=== PATIENT | male | born 1950 | race African-American/Black ===

== ENCOUNTER → 2017-01-24 | Outpatient (CLI) | payer MEDICARE, OTHER ==
[~2017-01-24] MED LIST: AMLO10TA80 PO; ASPI-1035 PO; ATOR80TA76 PO; CARV25TA47 PO; CLOP75TA2 PO; DOCU-138 PO; FURO80TA87 PO; LISI40TA4 PO; NITR0.4T3 SL
== END | disposition home or self-care (01) ==
LOC: US 08:39
PROVIDERS: ATTEND Internal Medicine Gastroenterology
DX: B19.10 Unspecified viral hepatitis B without hepatic coma (principal); K76.0 Fatty (change of) liver, not elsewhere classified
CPT/HCPCS: 76700

== ENCOUNTER 2018-02-17 19:05 | Emergency (ER) | payer MEDICARE, MEDICAID, OTHER ==
[~2018-02-17] VITALS: Ht 167.6 cm; Wt 129.0 kg
[~2018-02-17 19:05] MED LIST changes: -ASPI-1035 PO; +ASPI-1159 PO; +ATOR-2 PO; -ATOR80TA76 PO; +CLOP75TA16 PO; -CLOP75TA2 PO; +ENTRESTO PO; -NITR0.4T3 SL; +NITR0.4T49 SL; +POTA10CA42 PO
[2018-02-17] MEDS ORDERED: ALBUTEROL (0.083%) 2.5MG/3ML NEB HHN STA (23:07)
[2018-02-17] MEDS ORDERED: PREDNISONE 20MG TABLET PO STA (23:07)
[2018-02-17] MEDS ORDERED: IPRATROPIUM BROMIDE (0.02%) 0.5MG/2.5ML NEB HHN STA (23:07)
[2018-02-18 02:45] VITALS: BP 115/81
== END 2018-02-18 03:00 | disposition home or self-care (01) ==
LOC: ER 21:51
DX: R05 Cough (principal); R06.2 Wheezing; I10 Essential (primary) hypertension; I25.10 Atherosclerotic heart disease of native coronary artery without angina pectoris; Z79.82 Long term (current) use of aspirin; Z95.810 Presence of automatic (implantable) cardiac defibrillator; Z85.9 Personal history of malignant neoplasm, unspecified
CPT/HCPCS: 71045; 94640; 99283; J7512; J7611

== ENCOUNTER 2019-11-20 20:21 | Emergency (ER) | payer OTHER ==
[~2019-11-20] VITALS: Ht 177.8 cm; Wt 120.0 kg
[~2019-11-20 20:21] MED LIST changes: -ASPI-1159 PO; +ASPI-1497 PO; -CLOP75TA16 PO; +CLOP75TA4 PO
[2019-11-20] MEDS ORDERED: MORPHINE SULFATE 4 MG/ML CPJ (NOT FOR IM USE) IV STA (21:30)
[2019-11-20] MEDS ORDERED: ONDANSETRON HCL 4MG/2ML INJ IV STA (21:30)
[2019-11-20] MEDS ORDERED: HYDRALAZINE 20MG/ML VIAL IV ONE (22:15)
[2019-11-20] MEDS ORDERED: DEXAMETHASONE 10 MG/ML VIAL IV ONE (22:15)
[2019-11-20] MEDS ORDERED: LEVETIRACETAM 500MG PREMIX 100 ML IV ONE (22:15)
[2019-11-20] MEDS ORDERED: PHYTONADIONE 10 MG in DEXTROSE 5% WATER 50 ML IV ONE (22:30)
[2019-11-20 23:06] LABS: BASOPHILS % 0.9 % (0.0-2.0); CHLORIDE 108 mEq/L (98-107); EOSINOPHILS % 1.2 % (0.0-5.0); HEMATOCRIT. 42.4 % (42.0-52.0); HEMOGLOBIN. 14.2 g/dL (14.0-18.0); MEAN CORPUSCULAR HEMOGLOBIN 32.9 pg (28.0-32.0); MEAN CORPUSCULAR VOLUME 98.1 fL (80.0-94.0); MEAN PLATELET VOLUME 10.1 fl (7.4-10.4); MONOCYTES % 12.8 % (2.0-8.0); NEUTROPHILS % 72.1 % (40.0-76.0); PLATELET 168 x1000/uL (130-400); RED BLOOD CELL COUNT 4.33 mill/uL (4.7-6.1); RED CELL DISTRIBUTION WIDTH 14.9 % (11.6-14.6)
[2019-11-20 23:11] LABS: ETHANOL BLOOD < 10 mg/dL
[2019-11-20 23:14] LABS: INR 2.9; PARTIAL THROMBOPLASTIN TIME 43.7 sec (23.4-31.0); PROTHROMBIN TIME 30.5 sec (9.6-11.0)
[2019-11-21] VITALS: BP 136/88
== END 2019-11-20 22:45 | disposition short-term general hospital (02) ==
LOC: ER 20:21 → CANBEDREQ 11-21 01:20
DX: S09.8XXA Other specified injuries of head, initial encounter (principal); W22.8XXA Striking against or struck by other objects, initial encounter; Y93.89 Activity, other specified; Y92.89 Other specified places as the place of occurrence of the external cause; Y99.8 Other external cause status; I10 Essential (primary) hypertension; Z95.0 Presence of cardiac pacemaker; Z79.82 Long term (current) use of aspirin; Z79.899 Other long term (current) drug therapy
CPT/HCPCS: 36415; 70450; 71045; 80053; 80320; 83880; 84484; 85025; 85610; 85730; 93005; 96365; 96367; 96375; 99291; J0360; J1100; J1953; J2270; J2405; J3430; J7060; G0480

== ENCOUNTER 2020-11-15 20:45 | Inpatient (IN) | payer MEDICARE, MEDICAID ==
[~2020-11-15] VITALS: Ht 182.9 cm; Wt 105.0 kg
[~2020-11-15 20:45] MED LIST changes: +CLOP-31 PO; -CLOP75TA4 PO; +LISI40TA13 PO; -LISI40TA4 PO
[2020-11-15] MEDS ORDERED: LEVETIRACETAM 500MG PREMIX 100 ML IV ONE (21:30)
[2020-11-15 21:32] LABS: EOSINOPHILS % 1.8 % (0.0-5.0); HEMATOCRIT. 58.7 % (42.0-52.0); HEMOGLOBIN. 18.1 g/dL (14.0-18.0); LYMPHOCYTES % 31.8 % (20.0-50.0); MEAN CORPUSCULAR VOLUME 104.2 fL (80.0-94.0); MEAN PLATELET VOLUME 10.6 fl (7.4-10.4); MONOCYTES % 10.3 % (2.0-8.0); NEUTROPHILS % 55.1 % (40.0-76.0); PLATELET 158 x1000/uL (130-400); RED BLOOD CELL COUNT 5.63 mill/uL (4.7-6.1); RED CELL DISTRIBUTION WIDTH 15.6 % (11.6-14.6)
[2020-11-15 21:38] LABS: CHLORIDE 103 mEq/L (98-107)
[2020-11-15 21:43] LABS: ETHANOL BLOOD < 10 mg/dL
[2020-11-15 21:47] LABS: CREATINE KINASE 105 IU/L (39-308)
[2020-11-15] MEDS ORDERED: MIDAZOLAM HCL 100 MG in DEXT 5% WATER 80 ML IV SCH (22:15)
[2020-11-15] MEDS ORDERED: MIDAZOLAM HCL 100 MG in DEXT 5% WATER 80 ML IV ONE (22:15)
[2020-11-15 22:21] LABS: CLARITY URINE CLEAR (CLEAR); COLOR URINE YELLOW (YELLOW); KETONES URINE TRACE (NEGATIVE); LEUKOCYTE ESTERASE URINE NEGATIVE (NEGATIVE); NITRITE URINE NEGATIVE (NEGATIVE); OCCULT BLOOD URINE TRACE (NEGATIVE); PROTEIN URINE 3+ (NEGATIVE); SPECIFIC GRAVITY URINE 1.018 (1.005-1.030)
[2020-11-15 22:39] LABS: *AMPHETAMINES SCREEN URINE NEGATIVE (NEGATIVE); *BARBITURATES SCREEN URINE NEGATIVE (NEGATIVE); *BENZODIAZEPINES SCREEN URINE NEGATIVE (NEGATIVE); *COCAINE SCREEN URINE NEGATIVE (NEGATIVE); METHADONE URINE SCREEN NEGATIVE (NEGATIVE); OPIATES URINE SCREEN NEGATIVE (NEGATIVE); PHENCYCLIDINE URINE SCREEN NEGATIVE (NEGATIVE)
[2020-11-15 22:40] LABS: CANNABINOID URINE SCREEN NEGATIVE (NEGATIVE)
[2020-11-15] MEDS ORDERED: LACTULOSE 300 ML in WATER FOR IRRIGATION,STERILE 700 ML IR ONE (23:00)
[2020-11-15] MEDS ORDERED: FUROSEMIDE 40MG/4ML VIAL IVP ONE (23:00)
[2020-11-15 23:34] LABS: BG BASE EXCESS -5.9 mmol/L (-2.0-2.0); BG CARBOXYHEMOGLOBIN 0.7 % (0.5-1.5); BG DEOXYHEMOGLOBIN 0.5 % (0.0-5.0); BG FRACTION INSPIRED OXYGEN 100; BG HCO3 ACT 20.9 mmol/L (22.0-26.0); BG METHEMOGLOBIN 0.6 % (0.0-1.5); BG OXYGEN SATURATION 99.5 % (92.0-98.5); BG OXYHEMOGLOBIN 98.2 % (94.0-97.0); BG PCO2 45.2 mmHg (35.0-45.0); BG PH 7.282 (7.350-7.450); BG SAMPLE SITE RIGHT BRACHIAL; BG TOTAL HEMOGLOBIN 17.6 g/dL (12.0-18.0); BG VENT MODE VENT - AC
[2020-11-16] MEDS ORDERED: CALCIUM CHLORIDE 1GM/10ML SYR IV ONE (00:05)
[2020-11-16] MEDS ORDERED: ETOMIDATE 2MG/ML 10ML VIAL IV ONE (00:05)
[2020-11-16] MEDS ORDERED: ATROPINE SULFATE 1MG/10ML SYR ONE (00:05)
[2020-11-16] MEDS ORDERED: SODIUM BICARBONATE 8.4% 1 MEQ/ML 50ML SYR IV ONE (00:05)
[2020-11-16] MEDS ORDERED: SUCCINYLCHOLINE CHLORIDE 200MG/10ML IV ONE (00:05)
[2020-11-16] MEDS ORDERED: MAGNESIUM SULFATE 4G IN WATER 100ML PREMIX IV ONE (00:05)
[2020-11-16] MEDS ORDERED: EPINEPHRINE 0.1MG/ML (1:10,000) 10ML SYR ONE (00:05)
[2020-11-16] MEDS ORDERED: AMIODARONE HCL 50MG/ML 3ML VIAL IV ONE (00:05)
[2020-11-16] MEDS ORDERED: CHOL400D7 PO (03:23)
[2020-11-16] MEDS ORDERED: LINA145C MT (03:27)
[2020-11-16] MEDS ORDERED: BRIM5DRO6 OP (03:27)
[2020-11-16] MEDS ORDERED: SPIR25TA6 MT (03:27)
[2020-11-16] MEDS ORDERED: LORA10TA7 MT (03:27)
[2020-11-16] MEDS ORDERED: DABI150C MT (03:27)
[2020-11-16] MEDS ORDERED: NA PHOS,M-B/NA PHOS,DI-BA ENEMA 118ML PR PRN (07:30)
[2020-11-16] MEDS ORDERED: GUAIFENESIN 200MG/10ML SUGAR FREE UDC PO PRN (07:30)
[2020-11-16] MEDS ORDERED: CLONIDINE 0.1MG TABLET PO PRN (07:30)
[2020-11-16] MEDS ORDERED: HYDROCODONE/ACETAMINOPHEN 5/325MG TABLET PO PRN (07:30)
[2020-11-16] MEDS ORDERED: LORAZEPAM 2MG/ML CPJ IV PRN (07:30)
[2020-11-16] MEDS: DEXT 5%/0.45% NACL 1000ML 1,000 ML IV SCH (07:30)
[2020-11-16] MEDS ORDERED: DIPHENHYDRAMINE 50MG/ML VIAL IV PRN (07:30)
[2020-11-16] MEDS ORDERED: DEXTROSE 50% WATER 50ML SYRINGE IV PRN (07:30)
[2020-11-16] MEDS ORDERED: IPRATROPIUM/ALBUTEROL 0.5-3(2.5)MG/3ML NEB NEB PRN (07:30)
[2020-11-16] MEDS ORDERED: ONDANSETRON HCL 4MG/2ML INJ IV PRN (07:30)
[2020-11-16] MEDS ORDERED: HYDRALAZINE 20MG/ML VIAL IV PRN (07:30)
[2020-11-16] MEDS ORDERED: MAGNESIUM/ALUMINUM HYDROXIDE/SIMETHICONE 30ML UDC PO PRN (07:30)
[2020-11-16] MEDS ORDERED: ACETAMINOPHEN 325MG TABLET PO PRN (07:30)
[2020-11-16] MEDS ORDERED: DOCUSATE SODIUM 100MG CAPSULE PO PRN (07:30)
[2020-11-16] MEDS: INSULIN LISPRO 100 UNITS/ML SUBCUT SCH ×4 (08:20→21:00)
[2020-11-16] MEDS: ENOXAPARIN 30MG/0.3ML SYR SUBCUT SCH ×2 (09:17→21:38)
[2020-11-16] MEDS: PIPERACILLIN/TAZ 3.375G PREMIX 50 ML IV SCH ×2 (09:44→17:30)
[2020-11-16] MEDS: LEVETIRACETAM 500MG PREMIX 100 ML IV SCH ×2 (09:51→21:21)
[2020-11-16 09:54] LABS: BG BASE EXCESS 0.2 mmol/L (-2.0-2.0); BG CARBOXYHEMOGLOBIN 0.3 % (0.5-1.5); BG DEOXYHEMOGLOBIN 0.4 % (0.0-5.0); BG FRACTION INSPIRED OXYGEN 100; BG METHEMOGLOBIN 0.3 % (0.0-1.5); BG OXYGEN SATURATION 99.6 % (92.0-98.5); BG PCO2 45.5 mmHg (35.0-45.0); BG PH 7.374 (7.350-7.450); BG PO2 328.5 mmHg (75.0-100.0); BG SAMPLE SITE RIGHT RADIAL; BG TOTAL HEMOGLOBIN 18.1 g/dL (12.0-18.0); BG VENT MODE VENT - AC
[2020-11-16] MEDS: ASPIRIN 81MG TABLET PO SCH (10:30)
[2020-11-16] MEDS: CLOPIDOGREL 75MG TABLET PO SCH (10:30)
[2020-11-16] MEDS: LISINOPRIL 2.5MG TABLET PO SCH (10:30)
[2020-11-16] MEDS: PANTOPRAZOLE SODIUM 40 MG/VIAL IV SCH (11:12)
[2020-11-16] MEDS: FUROSEMIDE 20MG/2ML VIAL IVP SCH (11:12)
[2020-11-16] MEDS ORDERED: LACTULOSE 20G/30ML UDC PO SCH (12:00)
[2020-11-16] MEDS: BLOOD SUGAR DIAGNOSTIC STRIP TEST SCH ×2 (12:11→18:18)
[2020-11-16] MEDS: SODIUM CHLORIDE 0.9% INJ 3ML FLUSH IVF SCH ×2 (12:25→22:00)
[2020-11-16] MEDS ORDERED: MIDAZOLAM HCL 100 MG in SODIUM CHLORIDE 0.9% 80 ML IV PRN (13:00)
[2020-11-16] MEDS ORDERED: FENTANYL CITRATE/PF 2,500 MCG in SODIUM CHLORIDE 0.9% 200 ML IV PRN (13:00)
[2020-11-16] MEDS ORDERED: IPRATROPIUM/ALBUTEROL 0.5-3(2.5)MG/3ML NEB HHN PRN (13:30)
[2020-11-16] MEDS: IPRATROPIUM/ALBUTEROL 0.5-3(2.5)MG/3ML NEB HHN SCH ×2 (15:28→20:25)
[2020-11-16 16:34] LABS: CREATINE KINASE MB FRACTION 1.6 ng/mL (0.5-3.6)
[2020-11-16] MEDS: ATORVASTATIN CALCIUM 20MG TABLET PO SCH (21:35)
[2020-11-16] MEDS: CARVEDILOL 3.125 MG TABLET PO SCH (21:35)
[2020-11-16 23:58] LABS: CREATINE KINASE MB FRACTION 1.1 ng/mL (0.5-3.6)
[2020-11-17] MEDS: PIPERACILLIN/TAZ 3.375G PREMIX 50 ML IV SCH ×3 (02:03→17:30)
[2020-11-17] MEDS: IPRATROPIUM/ALBUTEROL 0.5-3(2.5)MG/3ML NEB HHN SCH ×7 (02:39→23:32)
[2020-11-17] MEDS: DEXT 5%/0.45% NACL 1000ML 1,000 ML IV SCH ×2 (02:39→16:50)
[2020-11-17 04:30] LABS: CHLORIDE 105 mEq/L (98-107)
[2020-11-17 04:31] LABS: BASOPHILS % 0.7 % (0.0-2.0); EOSINOPHILS % 0.5 % (0.0-5.0); HEMATOCRIT. 50.6 % (42.0-52.0); HEMOGLOBIN. 16.6 g/dL (14.0-18.0); LYMPHOCYTES % 9.4 % (20.0-50.0); MEAN CORPUSCULAR HEMOGLOBIN 32.9 pg (28.0-32.0); MEAN CORPUSCULAR VOLUME 100.1 fL (80.0-94.0); MEAN PLATELET VOLUME 10.4 fl (7.4-10.4); MONOCYTES % 10.5 % (2.0-8.0); NEUTROPHILS % 78.9 % (40.0-76.0); PLATELET 132 x1000/uL (130-400); RED BLOOD CELL COUNT 5.06 mill/uL (4.7-6.1); RED CELL DISTRIBUTION WIDTH 15.2 % (11.6-14.6)
[2020-11-17 04:36] LABS: LDL CHOLESTEROL 92 mg/dL (5-100)
[2020-11-17 04:37] LABS: HDL CHOLESTEROL 42 mg/dL (40-59)
[2020-11-17 04:38] LABS: T4 FREE 0.93 ng/dL (0.76-1.46)
[2020-11-17] MEDS: BLOOD SUGAR DIAGNOSTIC STRIP TEST SCH ×3 (06:13→12:44)
[2020-11-17] MEDS: SODIUM CHLORIDE 0.9% INJ 3ML FLUSH IVF SCH ×3 (06:13→22:00)
[2020-11-17] MEDS: INSULIN LISPRO 100 UNITS/ML SUBCUT SCH ×4 (06:30→21:00)
[2020-11-17 08:11] LABS: BG BASE EXCESS -1.3 mmol/L (-2.0-2.0); BG CARBOXYHEMOGLOBIN 0.2 % (0.5-1.5); BG DEOXYHEMOGLOBIN 0.5 % (0.0-5.0); BG HCO3 ACT 24.1 mmol/L (22.0-26.0); BG METHEMOGLOBIN 0.3 % (0.0-1.5); BG OXYGEN SATURATION 99.5 % (92.0-98.5); BG PCO2 42.8 mmHg (35.0-45.0); BG PH 7.369 (7.350-7.450); BG PO2 245.1 mmHg (75.0-100.0); BG SAMPLE SITE RIGHT BRACHIAL; BG TOTAL HEMOGLOBIN 17.8 g/dL (12.0-18.0); BG VENT MODE VENT - AC
[2020-11-17] MEDS ORDERED: DOCUSATE SODIUM SUGAR FREE 100MG/10ML UDC PO PRN (09:49)
[2020-11-17] MEDS ORDERED: ACETAMINOPHEN 650MG/20.3ML UDC PO PRN (10:00)
[2020-11-17] MEDS: LEVETIRACETAM 500MG PREMIX 100 ML IV SCH ×2 (10:40→23:00)
[2020-11-17] MEDS: ENOXAPARIN 30MG/0.3ML SYR SUBCUT SCH (10:45)
[2020-11-17] MEDS: CLOPIDOGREL 75MG TABLET PO SCH (10:50)
[2020-11-17] MEDS: ASPIRIN 81MG TABLET PO SCH (10:50)
[2020-11-17] MEDS: FUROSEMIDE 20MG/2ML VIAL IVP SCH (10:55)
[2020-11-17] MEDS: PANTOPRAZOLE SODIUM 40 MG/VIAL IV SCH (10:55)
[2020-11-17] MEDS: LISINOPRIL 2.5MG TABLET PO SCH (12:00)
[2020-11-17] MEDS: CARVEDILOL 3.125 MG TABLET PO SCH ×2 (12:00→21:00)
[2020-11-17] MEDS ORDERED: MIDAZOLAM HCL 100 MG in SODIUM CHLORIDE 0.9% 80 ML IV PRN (18:15)
[2020-11-18] MEDS: IPRATROPIUM/ALBUTEROL 0.5-3(2.5)MG/3ML NEB HHN SCH ×2 (03:54→08:00)
[2020-11-18] MEDS: BLOOD SUGAR DIAGNOSTIC STRIP TEST SCH (04:59)
[2020-11-18 05:37] LABS: HEMATOCRIT. 48.3 % (42.0-52.0); HEMOGLOBIN. 15.8 g/dL (14.0-18.0); MEAN CORPUSCULAR HEMOGLOBIN 32.3 pg (28.0-32.0); MEAN CORPUSCULAR VOLUME 98.8 fL (80.0-94.0); MEAN PLATELET VOLUME 10.5 fl (7.4-10.4); PLATELET 115 x1000/uL (130-400); RED BLOOD CELL COUNT 4.88 mill/uL (4.7-6.1); RED CELL DISTRIBUTION WIDTH 14.6 % (11.6-14.6)
[2020-11-18 06:12] LABS: HEPATITIS B SURFACE ANTIGEN NEGATIVE
[2020-11-18] MEDS: ATORVASTATIN CALCIUM 20MG TABLET PO SCH (06:19)
[2020-11-18] MEDS: SODIUM CHLORIDE 0.9% INJ 3ML FLUSH IVF SCH (06:21)
[2020-11-18] MEDS: PIPERACILLIN/TAZ 3.375G PREMIX 50 ML IV SCH (06:31)
[2020-11-18 06:42] LABS: HEPATITIS A AB IGM NEGATIVE (NEGATIVE)
[2020-11-18 07:27] LABS: BG BASE EXCESS -0.4 mmol/L (-2.0-2.0); BG CARBOXYHEMOGLOBIN 0.6 % (0.5-1.5); BG DEOXYHEMOGLOBIN 4.3 % (0.0-5.0); BG FRACTION INSPIRED OXYGEN 80; BG HCO3 ACT 23.7 mmol/L (22.0-26.0); BG METHEMOGLOBIN 0.1 % (0.0-1.5); BG OXYGEN SATURATION 95.7 % (92.0-98.5); BG PCO2 37.8 mmHg (35.0-45.0); BG PH 7.416 (7.350-7.450); BG PO2 81.4 mmHg (75.0-100.0); BG SAMPLE SITE RIGHT RADIAL; BG TOTAL HEMOGLOBIN 16.4 g/dL (12.0-18.0); BG VENT MODE VENT - AC
[2020-11-18] MEDS ORDERED: ENOXAPARIN 40MG/0.4ML SYR SUBCUT SCH (09:00)
[2020-11-18] MEDS: LEVETIRACETAM 500MG PREMIX 100 ML IV SCH (09:17)
[2020-11-18] MEDS: CLOPIDOGREL 75MG TABLET PO SCH (09:17)
[2020-11-18] MEDS: PANTOPRAZOLE SODIUM 40 MG/VIAL IV SCH (09:17)
[2020-11-18] MEDS: ASPIRIN 81MG TABLET PO SCH (09:17)
[2020-11-18] MEDS: DEXT 5%/0.45% NACL 1000ML 1,000 ML IV SCH (09:17)
[2020-11-18] MEDS ORDERED: FENTANYL CITRATE/PF 2,500 MCG in SODIUM CHLORIDE 0.9% 200 ML IV PRN (09:34)
[2020-11-18] MEDS: CARVEDILOL 3.125 MG TABLET PO SCH (09:39)
[2020-11-18] MEDS: LISINOPRIL 2.5MG TABLET PO SCH (09:39)
[2020-11-18] MEDS: INSULIN LISPRO 100 UNITS/ML SUBCUT SCH ×2 (11:35→11:36)
[2020-11-18 12:16] VITALS: BP 74/51
[2020-11-18] MEDS ORDERED: PHENYLEPHRINE 50 MG in DEXT 5% WATER 245 ML IV PRN (12:30)
[2020-11-18] MEDS ORDERED: METOPROLOL TARTRATE 5MG/5ML VIAL IV SCH (12:45)
[2020-11-18] MEDS ORDERED: HEPARIN 5000 UNITS/ML VIAL IV NR (12:45)
[2020-11-18] MEDS ORDERED: HEPARIN 25,000 UNITS PREMIX 250 ML IV SCH (13:00)
[2020-11-18] MEDS ORDERED: AMIODARONE HCL 900 MG in DEXT 5% WATER 482 ML IV STA (13:13)
[2020-11-18] MEDS ORDERED: AMIODARONE HCL 900 MG in DEXT 5% WATER 482 ML IV SCH (13:30)
[2020-11-18] MEDS ORDERED: HEPARIN 25,000 UNITS PREMIX 250 ML IV PRN (13:30)
[2020-11-18] MEDS ORDERED: HEPARIN 5000 UNITS/ML VIAL IV PRN ×2 (13:30)
[2020-11-18] MEDS ORDERED: EPINEPHRINE 5 MG in SODIUM CHLORIDE 0.9% 245 ML IV STA (13:34)
[2020-11-18] MEDS ORDERED: EPINEPHRINE 5 MG in SODIUM CHLORIDE 0.9% 245 ML IV PRN (13:45)
[2020-11-18 14:29] LABS: PLATELET ESTIMATE SLIGHTLY DECREASED
[2020-11-18] MEDS ORDERED: LACTULOSE 20G/30ML UDC PO SCH (17:00)
[2020-11-18] MEDS ORDERED: CARVEDILOL 6.25 MG TABLET PO SCH (21:00)
== END 2020-11-18 15:50 | disposition expired | DRG 871 ==
LOC: ER 20:45 → MICUSO 11-16 00:05
PROVIDERS: ADMIT Internal Medicine; ATTEND Internal Medicine
PROC: 06HY33Z Insertion of Infusion Device into Lower Vein, Percutaneous Approach (ICD-10-PCS; principal; 2020-11-16)
PROC: B54BZZA Ultrasonography of Right Lower Extremity Veins, Guidance (ICD-10-PCS; 2020-11-16)
PROC: 5A12012 Performance of Cardiac Output, Single, Manual (ICD-10-PCS; 2020-11-16)
PROC: 0BH18EZ Insertion of Endotracheal Airway into Trachea, Via Natural or Artificial Opening Endoscopic (ICD-10-PCS; 2020-11-16)
PROC: 5A1945Z Respiratory Ventilation, 24-96 Consecutive Hours (ICD-10-PCS; 2020-11-16)
DX: A41.9 Sepsis, unspecified organism (principal); J96.00 Acute respiratory failure, unspecified whether with hypoxia or hypercapnia; J18.9 Pneumonia, unspecified organism; I21.4 Non-ST elevation (NSTEMI) myocardial infarction; N17.0 Acute kidney failure with tubular necrosis; D68.9 Coagulation defect, unspecified; E46 Unspecified protein-calorie malnutrition; E87.4 Mixed disorder of acid-base balance; I13.0 Hypertensive heart and chronic kidney disease with heart failure and stage 1 through stage 4 chronic kidney disease, or unspecified chronic kidney disease; I50.22 Chronic systolic (congestive) heart failure; E72.29 Other disorders of urea cycle metabolism; E78.5 Hyperlipidemia, unspecified; I25.10 Atherosclerotic heart disease of native coronary artery without angina pectoris; Z20.822 Contact with and (suspected) exposure to COVID-19; G40.901 Epilepsy, unspecified, not intractable, with status epilepticus; B19.20 Unspecified viral hepatitis C without hepatic coma; I25.5 Ischemic cardiomyopathy; Z66 Do not resuscitate; Z51.5 Encounter for palliative care; K74.60 Unspecified cirrhosis of liver; N18.9 Chronic kidney disease, unspecified; R00.8 Other abnormalities of heart beat; F17.200 Nicotine dependence, unspecified, uncomplicated; Z79.82 Long term (current) use of aspirin; Z79.899 Other long term (current) drug therapy; I25.2 Old myocardial infarction; Z95.5 Presence of coronary angioplasty implant and graft; Z95.810 Presence of automatic (implantable) cardiac defibrillator; Z86.73 Personal history of transient ischemic attack (TIA), and cerebral infarction without residual deficits; R31.9 Hematuria, unspecified; I46.9 Cardiac arrest, cause unspecified
CPT/HCPCS: 36415; 36600; 71045; 76700; 80048; 80053; 80061; 80076; 80305; 80320; 81003; 82140; 82375; 82550; 82553; 82805; 82962; 83605; 83735; 83880; 84439; 84443; 84484; 85025; 86705; 86709; 86803; 86850; 86900; 87340; 87426; 93005; 93970; 94002; 94003; 94640; 99291; C9113; J0282; J0330; J0461; J1644; J1650; J1940; J1953; J2250; J2543; J3475; J3490; J7050; J7060; U0003; G0480